=== PATIENT | male | born 1935 | race Caucasian/White ===

== ENCOUNTER 2017-05-22 11:23 | Emergency (ER) | payer OTHER ==
[~2017-05-22 11:23] MED LIST: ASAB PO; CALTRA600D PO; COREG6 PO; HYDROCHLOROT25 MG PO; HYT5 PO; KAON-CL-1010 MEQ PO; MEVACOR PO; NORV10 PO; PRIN10 PO
[2017-08-29] MEDS ORDERED: TIMOLOL GEL0.5 % OPH (16:54)
== END 2017-05-22 13:54 | disposition home or self-care (01) ==
LOC: ER 11:23
DX: M25.562 Pain in left knee (principal); I10 Essential (primary) hypertension; Z95.0 Presence of cardiac pacemaker; Z87.891 Personal history of nicotine dependence; Z79.899 Other long term (current) drug therapy; Z79.82 Long term (current) use of aspirin; Z88.1 Allergy status to other antibiotic agents
CPT/HCPCS: 96372; 99283; J1885